=== PATIENT | female | born 1975 | race Caucasian/White ===

== ENCOUNTER → 2016-09-12 | Outpatient (CLI) | payer BC, OTHER ==
--- NOTE | 2016-09-13 16:09 | MR ---
EXAMINATION TYPE: MR brain wo con DATE OF EXAM: 09/12/2016 10:10 AM COMPARISON: 02/10/2011 HISTORY: 41-year-old female with headache TECHNIQUE: Multiplanar, multisequence images of the brain and brainstem were acquired without IV con trast. Diffusion weighted imaging is performed. FINDINGS: No evidence for acute infarction, hemorrhage, mass, mass effect, midline shift, herniation, effacemen t of basal cisterns, or extra-axial fluid collection. The ventricles and sulci are age-appropriate. Major intracranial flow voids are intact. T2/FLAIR weighted sequences show 4 mm and smaller bright white matter foci in both cerebral hemispher es, new from 02/10/2011. These are located in the subcortical and deep white matter numbering approxi mately 10 on the right and 3 on the left. Midline structures demonstrate normal morphology. The craniocervical junction is normal. The visualized sinuses are clear and the globes are intact. IMPRESSION: New tiny 4 mm and smaller bright white matter foci in the subcortical and deep white matter with mild overall burden, right greater than left. Some differential considerations include accelerated change s of chronic small vessel ischemic disease, chronic migraines, hypertension, and demyelinating diseas e. Clinically correlate.
== END | disposition home or self-care (01) ==
LOC: RADMRIMAIN 09:36
PROVIDERS: ATTEND Nurse Practitioner Acute Care
DX: R90.82 White matter disease, unspecified (principal); R51 Headache
CPT/HCPCS: 70551

== ENCOUNTER → 2017-06-02 | Outpatient (CLI) | payer BC, OTHER ==
[2017-06-02 17:47] LABS: Basophils % (A) 1 %; Eosinophils # (A) 0.1 k/uL (0-0.7); Eosinophils % (A) 2 %; HCT 40.1 % (34.0-46.0); HGB 12.7 gm/dL (11.4-16.0); Lymphocytes # (A) 1.4 k/uL (1.0-4.8); Lymphocytes % (A) 31 %; MCH 30.1 pg (25.0-35.0); MCHC 31.8 g/dL (31.0-37.0); MCV 94.7 fL (80.0-100.0); Mean Platelet Volume 7.1; Monocytes # (A) 0.3 k/uL (0-1.0); Monocytes % (A) 6 %; Neutrophils # (A) 2.6 k/uL (1.3-7.7); Neutrophils % (A) 57 %; Platelet Count 241 k/uL (150-450); RBC 4.23 m/uL (3.80-5.40); RDW 12.5 % (11.5-15.5); WBC 4.5 k/uL (3.8-10.6)
[2017-06-02 18:12] LABS: ALT 24 U/L (9-52); AST 19 U/L (14-36); Albumin 4.3 g/dL (3.5-5.0); Alkaline Phosphatase 62 U/L (38-126); Anion Gap 11 mmol/L; Blood Urea Nitrogen 18 mg/dL (7-17); C Reactive Protein <5.0 mg/L (<10.0); Calcium 9.6 mg/dL (8.4-10.2); Carbon Dioxide 28 mmol/L (22-30); Chloride 104 mmol/L (98-107); Glucose 99 mg/dL (74-99); Potassium 3.9 mmol/L (3.5-5.1); Sodium 143 mmol/L (137-145); Total Bilirubin 0.1 mg/dL (0.2-1.3); Total Protein 6.9 g/dL (6.3-8.2)
[2017-06-02 18:25] LABS: T4, Free (Free Thyroxine) 0.84 ng/dL (0.78-2.19)
[2017-06-02 21:06] LABS: Erythrocyte Sedimentation Rate 4 mm/hr (0-20)
[2017-06-03 00:36] LABS: Rheumatoid Factor 6 IU/mL (0-15)
== END | disposition home or self-care (01) ==
LOC: LABWHC1 16:54
PROVIDERS: ATTEND Nurse Practitioner Acute Care
DX: E55.9 Vitamin D deficiency, unspecified (principal); M35.3 Polymyalgia rheumatica
CPT/HCPCS: 36415; 80053; 82306; 82607; 84439; 84443; 84481; 85025; 85652; 86038; 86140; 86431

== ENCOUNTER → 2017-06-24 | Outpatient (CLI) | payer BC, OTHER | END | disposition home or self-care (01) | LOC: LABWHC1 08:55 | PROVIDERS: ATTEND Nurse Practitioner Acute Care | DX: Z53.9 Procedure and treatment not carried out, unspecified reason (principal) ==

== ENCOUNTER → 2017-12-09 | Outpatient (CLI) | payer BC, OTHER | END | disposition home or self-care (01) | LOC: LABWHC1 17:13 | PROVIDERS: ATTEND Nurse Practitioner Acute Care | DX: I49.9 Cardiac arrhythmia, unspecified (principal) | CPT/HCPCS: 93005 ==

== ENCOUNTER → 2017-12-09 | Outpatient (CLI) | payer BC, OTHER ==
--- NOTE | 2017-12-14 09:39 | MM ---
Reason for exam: screening (asymptomatic). Last mammogram was performed 2 years and 5 months ago. History: Patient has history of other cancer at age 35. Took hormonal contraceptives for 15 years beginning at age 15. Physical Findings: A clinical breast exam by your physician is recommended on an annual basis and results should be correlated with mammographic findings. MG 3D Screening Mammo W/Cad Bilateral CC and MLO view(s) were taken. Prior study comparison: July 19, 2015, bilateral MG 3d diag mammo w/cad BEL. July 04, 2014, bilateral MG diagnostic mammo w CAD BEL. The breast tissue is heterogeneously dense. This may lower the sensitivity of mammography. No suspicious abnormality. No significant changes when compared with prior studies. ASSESSMENT: Negative, BI-RAD 1 RECOMMENDATION: Routine screening mammogram of both breasts in 1 year.
== END | disposition home or self-care (01) ==
LOC: RADMAMWWP 17:00
PROVIDERS: ATTEND Obstetrics & Gynecology
DX: Z12.31 Encounter for screening mammogram for malignant neoplasm of breast (principal)
CPT/HCPCS: 77063; 77067

== ENCOUNTER 2018-09-21 09:49 | Day surgery (SDC) | payer BC, OTHER ==
[2018-09-21] MEDS ORDERED: LIDOCAINE 1% 20 ML VIAL (10MG/ML) FOR IV START INTRADERMA PRN (10:01)
[2018-09-21] MEDS ORDERED: LACTATED RINGERS 1,000 ML IV SCH (10:01)
[2018-09-21 10:29] VITALS: RESP 16; TEMP 97.6
[2018-09-21] MEDS ORDERED: PROPOFOL 10 MG/ML 20 ML VIAL IV ONE (10:43)
--- NOTE | 2018-09-21 11:20 | P.GSHP ---
History of Present Illness H&P Date: 09/21/18 CHIEF COMPLAINT: Rectal bleeding HISTORY OF PRESENT ILLNESS: The patient is a 43-year-old female who presents with history of rectal bleeding. Lower endoscopy was offered for further evaluation and management. PAST MEDICAL HISTORY: Please see list. PAST SURGICAL HISTORY: Please see list. MEDICATIONS: Please see list. ALLERGIES: Please see list. SOCIAL HISTORY: No illicit drug use FAMILY HISTORY: No reports of Crohn disease or ulcerative colitis. REVIEW OF ORGAN SYSTEMS: CONSTITUTIONAL: No reports of fevers or chills. PHYSICAL EXAM: VITAL SIGNS: Stable GENERAL: Well-developed pleasant in no acute distress. HEENT: No scleral icterus. Extraocular movements grossly intact. Moist buccal mucosa. NECK: Supple without lymphadenopathy. CHEST: Unlabored respirations. Equal bilateral excursions. CARDIOVASCULAR: Regular rate and rhythm. Distal 2+ pulses. ABDOMEN: Soft, nontender, nondistended. MUSCULOSKELETAL: No clubbing, cyanosis, or edema. ASSESSMENT: 1. Rectal bleeding PLAN: 1. Recommend proceeding with a lower endoscopy Past Medical History Additional Past Medical History / Comment(s): ECTOPIC , MIGRAINES, MENIERE'S DISEASE, Melanoma History of Any Multi-Drug Resistant Organisms: None Reported Past Surgical History: Section, Uterine Ablation Additional Past Surgical History / Comment(s): X2; Cervical coniz ation; Laparoscopy, left salpingostomy, ligation right inferior epigastric artery for ectopic; Melanoma excision right leg Past Anesthesia/Blood Transfusion Reactions: Motion Sickness Past Psychological History: No Psychological Hx Reported Smoking Status: Never smoker Past Alcohol Use History: None Reported Past Drug Use History: None Reported - Past Family History Father Family Medical History: Coronary Artery Disease (CAD), Hyperlipidemia, Hypertension, Myocardial Infarction (ME) Medications and Allergies Home Medications Medication Instructions Recorded Confirmed Type Qaqvvxz-[id number]-Avfl [id number] 2 each PO Q4HR PRN 11/14/13 09/21/18 History [Excedrin] Cetirizine HCl/Pseudoephedrine 1 each PO DAILY 11/14/13 09/21/18 History [Zyrtec-D Tablet] Citalopram Hydrobromide [CeleXA] 40 mg PO QAM 11/14/13 09/21/18 History Fluticasone Propionate [Flonase] 1 - 2 spray EA NOSTRIL BID 11/14/13 09/21/18 History Dextroamphetamine/Amphetamine 30 mg PO DAILY 09/21/18 09/21/18 History [Adderall] Promethazine [Phenergan] 25 mg PO DAILY PRN 09/21/18 09/21/18 History Rizatriptan Benzoate [Maxalt] 10 mg PO DAILY PRN 09/21/18 09/21/18 History Topiramate [Topamax] 50 mg PO BID 09/21/18 09/21/18 History Allergies Allergy/AdvReac Type Severity Reaction Status Date / Time egg Allergy "HARD TIME Verified 09/21/18 10:01 BREATHING DURING ALG TESTING" CARRIES EPI PEN codeine AdvReac Nausea & Verified 09/21/18 10:01 Vomiting Surgical - Exam Vital Signs Temp Pulse Resp BP Pulse Ox 97.6 F 104 H 16 127/87 100 09/21/18 10:27 09/21/18 10:27 09/21/18 10:27 09/21/18 10:27 09/21/18 10:27
--- NOTE | 2018-09-21 11:24 | P.PCN ---
Date of Procedure: 09/21/18 Description of Procedure: PREOPERATIVE DIAGNOSIS: Change in bowel habits Rectal bleeding POSTOPERATIVE DIAGNOSIS: Change in bowel habits Rectal bleeding Colitis, sigmoid OPERATION: Colonoscopy to the ileocecal valve SURGEON: Arin Templeton MD. ANESTHESIA: MAC. INDICATIONS: The patient is a 43-year-old female who presents for her first colonoscopy. She reports change in bowel habits including rectal bleeding. Benefits and risks were described and informed consent was obtained. DESCRIPTION OF PROCEDURE: The patient had undergone Suprep. She had been brought into the operating room and laid in the left lateral decubitus position. After adequate intravenous sedation, the rectum was examined with 2% lidocaine jelly. No external hemorrhoids were encountered. The rectal tone was within normal limits. No lesions were palpated in the rectal vault. An Olympus colonoscope was advanced until the ileocecal valve were clearly viewed. She had highly redundant colon requiring abdominal pressure. The prep was excellent with clear visualization of the mucosal folds. The scope was removed with visualization of each mucosal fold. No scattered diverticulosis was encountered. Focal colitis mild was found along the sigmoid colon with cold forceps biopsies obtained. Retroflexion of the scope demonstrated grade 1 internal hemorrhoids without active bleeding or inflammation. The colon was desufflated. The patient had tolerated the procedure well. Withdrawal time was over 6 minutes. FINDINGS: Aronchick preparation quality scale 1 (1-5) Internal hemorrhoids, grade 1 No external prolapsed hemorrhoids. No arteriovenous malformations. No large adenomatous polyps. Focal colitis mild was found along the sigmoid colon with cold forceps biopsies obtained. RECOMMENDATIONS: Lower endoscopy in 5 years, 2023 Plan - Discharge Summary New Discharge Prescriptions: No Action [id number]-[id number] [id number] [Excedrin] 2 each PO Q4HR PRN PRN Reason: MIGRAINES Fluticasone Propionate [Flonase] 1 - 2 spray EA NOSTRIL BID Citalopram Hydrobromide [CeleXA] 40 mg PO QAM Cetirizine HCl/Pseudoephedrine [Zyrtec-D Tablet] 1 each PO DAILY Topiramate [Topamax] 50 mg PO BID Promethazine [Phenergan] 25 mg PO DAILY PRN PRN Reason: DIZZINESS Dextroamphetamine/Amphetamine [Adderall] 30 mg PO DAILY Rizatriptan Benzoate [Maxalt] 10 mg PO DAILY PRN PRN Reason: Headache Discharge Medication List [id number] [Excedrin] 2 each PO Q4HR PRN 11/14/13 [History] Cetirizine HCl/Pseudoephedrine [Zyrtec-D Tablet] 1 each PO DAILY 11/14/13 [History] Citalopram Hydrobromide [CeleXA] 40 mg PO QAM 11/14/13 [History] Fluticasone Propionate [Flonase] 1 - 2 spray EA NOSTRIL BID 11/14/13 [History] Dextroamphetamine/Amphetamine [Adderall] 30 mg PO DAILY 09/21/18 [History] Promethazine [Phenergan] 25 mg PO DAILY PRN 09/21/18 [History] Rizatriptan Benzoate [Maxalt] 10 mg PO DAILY PRN 09/21/18 [History] Topiramate [Topamax] 50 mg PO BID 09/21/18 [History] Follow up Appointment(s)/Referral(s): Arin Templeton MD [STAFF PHYSICIAN] - 10/04/18 Patient Instructions/Handouts: *[facility] - (Anesthesia) Endoscopy Discharge Instructions, Ulcerative Colitis (DC), Colonoscopy (DC) Activity/Diet/Wound Care/Special Instructions: Repeat colonoscopy in 5 years, 2023 Discharge Disposition: HOME SELF-CARE
[2018-09-21 11:40] VITALS: BP 158/94; PULSE 89
== END 2018-09-21 12:00 | disposition home or self-care (01) ==
LOC: ORWHC2ENDO 09:49
PROVIDERS: ATTEND Surgery Plastic and Reconstructive Surgery
DX: K52.9 Noninfective gastroenteritis and colitis, unspecified (principal); R19.4 Change in bowel habit; K62.5 Hemorrhage of anus and rectum; Q43.8 Other specified congenital malformations of intestine; K64.0 First degree hemorrhoids; G43.909 Migraine, unspecified, not intractable, without status migrainosus; H81.09 Meniere's disease, unspecified ear; Z85.820 Personal history of malignant melanoma of skin; Z79.82 Long term (current) use of aspirin; Z79.899 Other long term (current) drug therapy; Z91.012 Allergy to eggs; Z88.5 Allergy status to narcotic agent; Z82.49 Family history of ischemic heart disease and other diseases of the circulatory system
CPT/HCPCS: 45380; 81025; 88305; J2704

== ENCOUNTER → 2019-02-01 | Outpatient (CLI) | payer BC, OTHER ==
--- NOTE | 2019-02-02 11:00 | MM ---
Reason for exam: screening (asymptomatic). Last mammogram was performed 1 year and 2 months ago. History: Patient has history of other cancer at age 35. Took hormonal contraceptives for 15 years beginning at age 15. Physical Findings: A clinical breast exam by your physician is recommended on an annual basis and results should be correlated with mammographic findings. MG 3D Screening Mammo W/Cad Bilateral CC and MLO view(s) were taken. Prior study comparison: December 09, 2017, bilateral MG 3d screening mammo w/cad. July 19, 2015, bilateral MG 3d diag mammo w/cad BEL. The breast tissue is heterogeneously dense. This may lower the sensitivity of mammography. There is no discrete abnormality. ASSESSMENT: Negative, BI-RAD 1 RECOMMENDATION: Routine screening mammogram of both breasts in 1 year.
== END | disposition home or self-care (01) ==
LOC: RADMAMWWP 07:36
PROVIDERS: ATTEND Family Medicine
DX: Z12.31 Encounter for screening mammogram for malignant neoplasm of breast (principal)
CPT/HCPCS: 77063; 77067

== ENCOUNTER → 2020-04-09 | Outpatient (CLI) | payer BC, OTHER | END | disposition home or self-care (01) | LOC: LABWHC1 15:51 | PROVIDERS: ATTEND Family Medicine | DX: R51.9 Headache, unspecified (principal); Z20.828 Contact with and (suspected) exposure to other viral communicable diseases; J02.9 Acute pharyngitis, unspecified | CPT/HCPCS: U0003; C9803 ==

== ENCOUNTER → 2021-02-12 | Outpatient (CLI) | payer OTHER ==
--- NOTE | 2021-02-13 04:04 | MR ---
EXAMINATION TYPE: MR shoulder LT wo con DATE OF EXAM: 02/12/2021 COMPARISON: None HISTORY: PAIN IN LEFT SHOULDER Multiplanar multiecho imaging of the left shoulder without contrast . The AC joint is intact. There is no subacromial impingement. There is shoulder joint effusion. There is fluid around the biceps tendon. There is normal appearance of the supraspinatus tendon. There is no retraction. There is some narrowing of the glenohumeral joint space. There is minor spurring of the humeral head. Greater tuberosity is intact. Subscapularis tendon is intact. IMPRESSION: No evidence of rotator cuff tear. There is osteoarthritic narrowing of the glenohumeral joint with sp ur formation and shoulder joint effusion. Fluid consistent with synovitis.
== END | disposition home or self-care (01) ==
LOC: RADMRIMAIN 18:51
PROVIDERS: ATTEND Psychiatry & Neurology Neurology
DX: M19.012 Primary osteoarthritis, left shoulder (principal)

== ENCOUNTER → 2022-05-07 | Outpatient (CLI) | payer OTHER ==
--- NOTE | 2022-05-09 16:27 | MM ---
Reason for Exam: Screening (asymptomatic). Last mammogram was performed 3 year(s) and 3 month(s) ago. Patient History: Menarche at age 13. First Full-Term at age 25. Hysterectomy at age 38. Patient has history of breast feeding. Other cancer, age 35. Hormonal Contraceptives for 15 years from age 15 until age 30. Risk Values: Precious 5 year model risk: 0.9%. NCI Lifetime model risk: 9.2%. Prior Study Comparison: 07/19/2015 Bilateral Diagnostic Mammogram, [facility]. 12/09/2017 Bilateral Screening Mammogram, [facility]. 02/01/2019 Bilateral Screening Mammogram, [facility]. Tissue Density: The breast tissue is extremely dense which could obscure a lesion on mammography. Findings: Analyzed By CAD. Similar nodular breast tissue on both sides. There is no suspicious group of microcalcifications or new suspicious mass in either breast. Overall Assessment: Benign, BI-RAD 2 Management: Screening Mammogram of both breasts in 1 year. 1. Patient should continue monthly self breast exams. 2. A clinical breast exam by your physician is recommended on an annual basis. 3. This exam should not preclude additional follow-up of suspicious palpable abnormalities. Electronically signed and approved by: Safia Bojorquez M.D. Radiologist
== END | disposition home or self-care (01) ==
LOC: RADMAMWWP 14:57
PROVIDERS: ATTEND Family Medicine
DX: Z12.31 Encounter for screening mammogram for malignant neoplasm of breast (principal)
CPT/HCPCS: 77063; 77067

== ENCOUNTER → 2022-10-22 | Outpatient (CLI) | payer OTHER ==
--- NOTE | 2022-11-17 11:34 | EST ---
EXERCISE STRESS STUDY PERFORMED: Holter monitor. The patient was monitored for 72 hours. CLINICAL INFORMATION: Baseline rhythm is sinus mechanism with normal conduction. The average rate 84 beats per minute, minimum 56, maximum 149 beats per minute. Ventricular ectopic activity was present in form of rare single PVCs. Supraventricular ectopic activity was present in form of rare single PACs. Symptoms of migraine were reported throughout the tracing. IMPRESSION: 1. Sinus mechanism baseline rhythm. 2. Rare ventricular ectopic activity. 3. Rare supraventricular ectopic activity. MMODL / BRYANN: [id number] /
== END | disposition home or self-care (01) ==
LOC: RADECHMAIN 12:43
PROVIDERS: ATTEND Family Medicine
DX: I49.3 Ventricular premature depolarization (principal); R00.0 Tachycardia, unspecified
CPT/HCPCS: 93225; 93226

== ENCOUNTER → 2022-11-17 | Outpatient (CLI) | payer OTHER ==
--- NOTE | 2022-11-17 19:23 | MR ---
A EXAMINATION TYPE: MR lumbar spine wo con DATE OF EXAM: 11/17/2022 7:16 PM COMPARISON: NONE HISTORY: Low back pain that radiates down left leg Multiplanar, MultiSpin echo imaging of the lumbar spine was performed. L1-L2: Normal disc appearance without desiccation. No herniation, protrusion or disc bulging. No ca nal stenosis is present. Foramina are patent bilaterally. L2-L3: Normal disc appearance without desiccation. No herniation, protrusion or disc bulging. No ca nal stenosis is present. Foramina are patent bilaterally. L3-L4: Normal disc appearance without desiccation. No herniation, protrusion or disc bulging. No ca nal stenosis is present. Foramina are patent bilaterally. L4-L5: Normal disc appearance without desiccation. No herniation, protrusion or disc bulging. No ca nal stenosis is present. Foramina are patent bilaterally. L5-S1: Normal disc appearance without desiccation. No herniation, protrusion or disc bulging. No ca nal stenosis is present. Foramina are patent bilaterally. Lumbar segments are intact. No paraspinal masses are identified. Conus medullaris has a normal appe arance. IMPRESSION: 1. Unremarkable study
--- NOTE | 2022-11-19 09:27 | MR ---
EXAMINATION TYPE: MR brain wo cspine wo/w DATE OF EXAM: 11/17/2022 COMPARISON: 09/12/2016 HISTORY: Chronic migraines, neck pain that radiates down left arm.G43.019 R42 M54.2 M47.812 M96.1 M54 .50 M47.816 TECHNIQUE: Multiplanar multisequence imaging of the brain was performed without intravenous contrast. FINDINGS: Diffusion weighted images demonstrate no evidence of a recent infarct or other diffusion ab normality. There is no extra-axial fluid collection. The ventricular system and cisternal spaces are normal in size and appearance. The brain volume is age appropriate. T2/FLAIR weighted sequences demonstrates some 4 mm foci of increased signal within the subcortical an d deep white matter regions bilaterally unchanged in overall size, shape and number. Midline structures demonstrate normal morphology. The craniocervical junction appears within normal limits. The visualized sinuses are clear and the globes are intact. IMPRESSION: 1. Stable T2 lesions which are nonspecific. Differential diagnostic possibilities include chronic sma ll vessel ischemic change, sequela of migraine headaches, vasculitis, Lyme's disease and demyelinatin g process. Correlate clinically. MRI CERVICAL SPINE: CLINICAL HISTORY: G43.019 R42 M54.2 M47.812 M96.1 M54.50 M47.816 TECHNIQUE: Multiplanar, multisequence imaging of the cervical spine is performed without and with IV contrast, 5.5 cc of Gadavist was given intravenously. COMPARISON: 01/31/2016 FINDINGS: C2-C3: No evidence for degenerative disc disease. No disc bulge/herniation or protrusion. No Canal stenosis. Foramina are patent bilaterally. C3-C4: No evidence for degenerative disc disease. No disc bulge/herniation or protrusion. No Canal stenosis. Foramina are patent bilaterally. C4-C5: No evidence for degenerative disc disease. No disc bulge/herniation or protrusion. No Canal stenosis. Foramina are patent bilaterally. C5-C6: Moderate disc desiccation noted with decreased signal and loss of height identified. There is posterior central disc bulge noted with mild effacement of the ventral thecal sac. No evidence for ce ntral stenosis. There is degenerative change of the cervical apophyseal joints resulting in right-radha ed neural foraminal encroachment. C6-C7: Postoperative changes of anterior cervical discectomy and fusion with metallic susceptibility artifact limiting evaluation. There is posterior ridging noted. Mild effacement ventral thecal sac. N o evidence for recurrent herniation or central stenosis. Neural foramina are patent bilaterally. C7-T1: No evidence for degenerative disc disease. No disc bulge/herniation or protrusion. No Canal stenosis. Foramina are patent bilaterally. Cervical segments are intact. There is normal alignment. Cervical spinal cord is of normal signal. Craniovertebral junction relationships are within normal limits. Pathologic enhancement identified. IMPRESSION: 1. Changes of ACDF at C6-7 without evidence for recurrent or residual disease. Mild posterior ridging noted. 2. Degenerative disc disease with posterior disc bulge at C5-6. Right neural foraminal encroachment.
== END | disposition home or self-care (01) ==
LOC: RADMRIMAIN 17:40
PROVIDERS: ATTEND Psychiatry & Neurology Neurology
DX: M50.322 Other cervical disc degeneration at C5-C6 level (principal); G43.019 Migraine without aura, intractable, without status migrainosus; M47.812 Spondylosis without myelopathy or radiculopathy, cervical region; M47.816 Spondylosis without myelopathy or radiculopathy, lumbar region; M99.71 Connective tissue and disc stenosis of intervertebral foramina of cervical region; M96.1 Postlaminectomy syndrome, not elsewhere classified; R42 Dizziness and giddiness
CPT/HCPCS: 70551; 72148; 72156; A9585

== ENCOUNTER → 2023-07-01 | Outpatient (CLI) | payer BC, OTHER ==
--- NOTE | 2023-07-01 17:39 | CA ---
Exercise Stress Test Report Name: Burt Crenshaw Exam Date: 07/01/2023 11:47 Exam Location: [facility] Ht (in): 64 Wt (lb): 125 BSA: 1.60 Ordering Phys: Jhonny Cross DO Referring Phys: Marisabel Ryan Technologist: Dillon Yo Age: 48 Gender: F : 1975 Procedure CPT: Indications: R00.0 TACHYCARDIA, R94.31 ABNORMAL ELECTROCARDIOGR ICD-10 Codes: Patient History: PALPITATIONS, HTN, ELEVATED CHOLESTEROL LEVELS, FAMILY HX OF HEART DISEASE Medications: Meds past 24 hrs: Pretest Chest Pain: STRESS TEST Hossein Protocol Exercise Duration (min:sec): 09:[address] Depressions (mm): Angina Score: Verma Score: Resting HR (bpm): 88 Peak HR (bpm): 158 Resting BP (mmHg): 149 / 91 Peak BP (mmHg): 181 / 90 MPHR: 170 Target HR: 145 % MPHR: 93 METS: 10.3 Total Dose: Peak Dose: Atropine: Double Product: [id number] BP Response: Stress Termination: MAX EXERTION/TARGET HR Stress Symptoms: NO SYMPTOMS Stress Summary: ECG ANALYSIS Resting ECG: Normal sinus rhythm normal axis normal intervals Stress ECG: Patient exercised on Hossein protocol for 9 minutes achieving 85% of predicted maximal heart rate without chest pain or diagnostic ST segment depression CONCLUSIONS Good exercise tolerance Negative stress test by EKG criteria Dr. Gonzalez Tracy MD (Electronically Signed) Final Date: 01 July 2023 17:39
== END | disposition home or self-care (01) ==
LOC: RADNMMAIN 11:04
PROVIDERS: ATTEND Family Medicine
DX: R00.0 Tachycardia, unspecified (principal); R94.31 Abnormal electrocardiogram [ECG] [EKG]
CPT/HCPCS: 93017

== ENCOUNTER → 2023-07-01 | Outpatient (CLI) | payer BC ==
--- NOTE | 2023-07-01 17:37 | CA ---
Transthoracic Echo Report Name: Burt Crenshaw Age: 48 Gender: F : 1975 Exam Date: 07/01/2023 12:37 Exam Location: [facility] Ht (in): 64 Wt (lb): 126 Ordering Physician: Jhonny Cross DO Attending/Referring Phys: Marisabel Ryan [facility] [employer] Amanda Loyd RDCS Procedure CPT: Indications: R94.31 ABNORMAL ELECTROCARDIOGRAM [ECG] [EKG] Cardiac Hx: Technical Quality: Contrast 1: Total Dose (mL): Contrast 2: Total Dose (mL): MEASUREMENTS (Male / Female) Normal Values 2D ECHO LV Diastolic Diameter PLAX 3.7 cm 4.2 - 5.9 / 3.9 - 5.3 cm LV Systolic Diameter PLAX 2.9 cm IVS Diastolic Thickness 1.1 cm 0.6 - 1.0 / 0.6 - 0.9 cm LVPW Diastolic Thickness 1.0 cm 0.6 - 1.0 / 0.6 - 0.9 cm LV Relative Wall Thickness 0.6 RV Internal Dim ED PLAX 3.4 cm LV Diastolic Volume MOD BP 56.6 cm??? 67 - 155 / 56 - 104 cm??? LV Systolic Volume MOD BP 27.0 cm??? 22 - 58 / 19 - 49 cm??? LV Ejection Fraction MOD BP 52.3 % >= 55 % LV Diastolic Volume MOD 4C 62.8 cm??? LV Systolic Volume MOD 4C 31.1 cm??? LV Ejection Fraction MOD 4C 50.5 % LV Diastolic Length 4C 7.1 cm LV Systolic Length 4C 5.6 cm LV Diastolic Volume MOD 2C 41.5 cm??? LV Systolic Volume MOD 2C 22.7 cm??? LV Ejection Fraction MOD 2C 45.3 % LV Diastolic Length 2C 5.7 cm LV Systolic Length 2C 5.9 cm LA Volume 29.8 cm??? 18 - 58 / 22 - 52 cm??? LA Volume Index 18.5 cm???/m??? 16 - 28 cm???/m??? M-MODE Aortic Root Diameter MM 3.2 cm LA Systolic Diameter MM 2.6 cm LA Ao Ratio MM 0.8 AV Cusp Separation MM 1.7 cm DOPPLER AV Peak Velocity 104.1 cm/s AV Peak Gradient 4.3 mmHg AV Mean Velocity 69.1 cm/s AV Mean Gradient 2.2 mmHg AV Velocity Time Integral 18.4 cm LVOT Peak Velocity 76.7 cm/s LVOT Peak Gradient 2.4 mmHg LVOT Velocity Time Integral 15.4 cm MV Area PHT 5.2 cm??? Mitral E Point Velocity 66.5 cm/s Mitral A Point Velocity 73.7 cm/s Mitral E to A Ratio 0.9 MV Deceleration Time 145.1 ms MV E' Velocity 6.7 cm/s Mitral E to MV E' Ratio 10.0 TR Peak Velocity 186.7 cm/s TR Peak Gradient 13.9 mmHg Right Ventricular Systolic Press 18.5 mmHg FINDINGS Left Ventricle Mildly increased septal wall thickness. Mildly increased posterior wall thickness. Mildly decreased left ventricular ejection fraction. Left ventricular ejection fraction is estimated at 50-55 %. Right Ventricle Normal right ventricular size and function. Right ventricular systolic pressure within normal limits. Right Atrium Normal right atrial size. Left Atrium Normal left atrial size. Mitral Valve Structurally normal mitral valve. Mild mitral regurgitation. Aortic Valve Trileaflet aortic valve. No aortic valve stenosis or regurgitation. Tricuspid Valve Structurally normal tricuspid valve. Mild tricuspid regurgitation. Pulmonic Valve Structurally normal pulmonic valve. Mild pulmonic regurgitation. Pericardium No pericardial effusion. Aorta Normal size aortic root and proximal ascending aorta. CONCLUSIONS Normal LV function Mild mitral regurg to Previewed by: Dr. Gonzalez Tracy MD (Electronically Signed) Final Date: 01 July 2023 17:36
== END | disposition home or self-care (01) ==
LOC: RADECHMAIN 10:59
PROVIDERS: ATTEND Family Medicine
DX: I34.0 Nonrheumatic mitral (valve) insufficiency (principal); R94.31 Abnormal electrocardiogram [ECG] [EKG]
CPT/HCPCS: 93306

== ENCOUNTER → 2024-04-18 | Outpatient (CLI) | payer BC ==
--- NOTE | 2024-04-21 16:45 | MM ---
Reason for Exam: Screening (asymptomatic). Last mammogram was performed 1 year(s) and 11 month(s) ago. Patient History: Menarche at age 13. First Full-Term at age 25. Hysterectomy at age 38. Patient has history of breast feeding. Other cancer, age 35. Hormonal Contraceptives for 15 years from age 15 until age 30. Risk Values: Precious 5 year model risk: 1.0%. NCI Lifetime model risk: 8.9%. Prior Study Comparison: 12/09/2017 Bilateral Screening Mammogram, [facility]. 02/01/2019 Bilateral Screening Mammogram, [facility]. 05/07/2022 Bilateral MG 3D screening mammo w/cad, [facility]. Tissue Density: The breasts are heterogeneously dense, which may obscure small masses. Findings: Analyzed By CAD. There is no suspicious group of microcalcifications or new suspicious mass in either breast. Overall Assessment: Benign, BI-RAD 2 Management: Screening Mammogram of both breasts in 1 year. Patient should continue monthly self-breast exams. A clinical breast exam by your physician is recommended on an annual basis. This exam should not preclude additional follow-up of suspicious palpable abnormalities. Note on Precious scores and lifetime risk: 1. A Precious score greater than 3% is considered moderate risk. If this is the case, consider specialist referral to assess eligibility for a risk reducing agent. 2. If overall lifetime risk for the development of breast cancer is 20% or higher, the patient may qualify for future screening with alternating mammogram and breast MRI. [facility], , 04/21/2024 4:43 PM. Electronically signed and approved by: Safia Bojorquez M.D. Radiologist
== END | disposition home or self-care (01) ==
LOC: RADMAMWWP 11:04
PROVIDERS: ATTEND Family Medicine
DX: Z12.31 Encounter for screening mammogram for malignant neoplasm of breast (principal); R92.333 Mammographic heterogeneous density, bilateral breasts
CPT/HCPCS: 77063; 77067

== ENCOUNTER → 2024-04-18 | Outpatient (CLI) | payer BC ==
[2024-04-18 15:52] LABS: ALT 8 U/L (8-44); AST 14 U/L (13-35); Albumin 4.4 g/dL (3.8-4.9); Alkaline Phosphatase 73 U/L (41-126); BUN/Creat Ratio 41.33 Ratio (12.00-20.00); Blood Urea Nitrogen 24.8 mg/dL (9.0-27.0); Calcium 9.2 mg/dL (8.7-10.3); Carbon Dioxide 26.1 mmol/L (21.6-31.8); Chloride 106 mmol/L (96-109); Chol/HDL Ratio 2.84 Ratio; Globulin 2.1 g/dL (1.6-3.3); Glucose 112 mg/dL (70-110); Iron 72 UG/DL (50-170); LDL Cholesterol,Calculated 111.5 mg/dL (0.0-131.0); Sodium 140 mmol/L (135-145); T4, Free (Free Thyroxine) 1.06 ng/dL (0.80-1.80); Total Bilirubin 0.3 mg/dL (0.3-1.2); Total Protein 6.5 g/dL (6.2-8.2); VLDL Calculation 13.52 mg/dL (5.00-40.00)
[2024-04-18 15:53] LABS: Follicle Stimulating Hormone 4.8 mIU/mL; Luteinizing Hormone 6.7 mIU/mL
[2024-04-18 16:09] LABS: Basophils # (A) 0.03 X 10*3/uL (0.00-0.10); Basophils % (A) 0.4 %; Eosinophils # (A) 0.09 X 10*3/uL (0.04-0.35); Eosinophils % (A) 1.2 %; HCT 37.8 % (37.2-46.3); HGB 11.6 g/dL (12.0-15.0); Lymphocytes # (A) 1.02 X 10*3/uL (0.90-5.00); Lymphocytes % (A) 13.9 %; MCHC 30.7 g/dL (32.0-37.0); MCV 81.5 FL (80.0-97.0); Monocytes # (A) 0.49 X 10*3/uL (0.20-1.00); Monocytes % (A) 6.7 %; NRBC Per 100 WBC 0 X 10*3/uL (0.00-0.01); Neutrophils # (A) 5.69 X 10*3/uL (1.80-7.70); Neutrophils % (A) 77.5 %; Platelet Count 266 X 10*3/uL (140-440); RBC 4.64 X 10*6/uL (4.10-5.20); WBC 7.34 X 10*3/uL (4.50-10.00)
== END | disposition home or self-care (01) ==
LOC: LABWHC1 11:24
PROVIDERS: ATTEND Family Medicine
DX: Z78.0 Asymptomatic menopausal state (principal); I49.9 Cardiac arrhythmia, unspecified
CPT/HCPCS: 36415; 80053; 80061; 82670; 83001; 83002; 83540; 84144; 84403; 84439; 84443; 84481; 85025; 93005